=== PATIENT | female | born 1970 | race African-American/Black ===

== ENCOUNTER 2019-06-23 17:03 | Observation (INO) ==
[2019-06-23 18:05] LABS: Basophils # 0.1 10*3/uL (0.0-0.2); Basophils % 0.4 % (0.0-0.8); Eosinophils # 0.2 10*3/uL (0.0-0.87); Eosinophils % 1.8 % (0.00-10.9); Hematocrit 37.9 VOL% (35.7-47.0); Hemoglobin 12.1 GM/DL (12.0-16.0); Immature Granulocytes % 0.4 %; Immature Granulocytes Absolute 0.05 #; Lymphocytes # 3.5 10*3/uL (1.4-4.0); Lymphocytes % 27.9 % (21.3-54.2); Mean Corpuscular HGB Conc 31.9 GM/DL (32-36); Mean Corpuscular Volume 85.4 FL (87-102); Mean Platelet Volume 9.1 FL (9.6-12.0); Monocytes % 12.6 % (1.7-12.7); Neutrophils % 56.9 % (38.7-73.9); Platelet Count 432 T/CUMM (130-400); Red Blood Count 4.44 MC/CUMM (3.8-5.5); Red Cell Distribution Width 13.9 % (9.3-17.3); White Blood Count 12.6 T/CUMM (4-12)
[2019-06-23 18:24] LABS: Albumin 3.5 G/DL (3.4-5.0); Bilirubin,Total 0.4 MG/DL (0.2-1.0); Calcium 9.1 MG/DL (8.5-10.1); Osmolality,Calculated 279.4 MOS/KG (273-304)
[2019-06-23] MEDS ORDERED: VANCOMYCIN INJ 1,250 MG in SODIUM CHLORIDE 0.9% 250 ML IV STA (18:27)
[2019-06-23] MEDS ORDERED: VANCOMYCIN 1,000 MG VIAL ONE (18:31)
[2019-06-23] MEDS ORDERED: VANCOMYCIN INJ 1,000 MG in SODIUM CHLORIDE 0.9% 250 ML IV STA (18:33)
[2019-06-23] MEDS ORDERED: ACETAMINOPHEN 325 MG TABLET PO PRN (19:13)
[2019-06-23] MEDS: DEXTROSE 5% NACL 0.45% 1,000 ML IV SCH (20:25)
[2019-06-23] MEDS ORDERED: ALBUTEROL/IPRATROPIUM 3 ML NEB RESP TX SCH (21:00)
[2019-06-23] MEDS ORDERED: INFLUENZA VIRUS VACCINE 0.5 ML SYRINGE IM ONE (22:15)
[2019-06-23] MEDS: VANCOMYCIN INJ 2,000 MG in SODIUM CHLORIDE 0.9% 500 ML IV SCH (22:49)
[2019-06-24] MEDS: ONDANSETRON 4 MG/2 ML VIAL IV PRN ×2 (00:10→19:39)
[2019-06-24 05:03] LABS: Basophils # 0.1 10*3/uL (0.0-0.2); Basophils % 0.5 % (0.0-0.8); Eosinophils # 0.3 10*3/uL (0.0-0.87); Hematocrit 35.5 VOL% (35.7-47.0); Hemoglobin 11.2 GM/DL (12.0-16.0); Immature Granulocytes % 0.2 %; Immature Granulocytes Absolute 0.02 #; Lymphocytes # 3.5 10*3/uL (1.4-4.0); Lymphocytes % 33.7 % (21.3-54.2); Mean Corpuscular HGB Conc 31.5 GM/DL (32-36); Mean Corpuscular Volume 86.6 FL (87-102); Monocytes % 13.3 % (1.7-12.7); Neutrophils % 49.3 % (38.7-73.9); Platelet Count 386 T/CUMM (130-400); Red Cell Distribution Width 14.1 % (9.3-17.3); White Blood Count 10.3 T/CUMM (4-12)
[2019-06-24] MEDS: DEXTROSE 5% NACL 0.45% 1,000 ML IV SCH ×4 (06:35→21:13)
[2019-06-24] MEDS ORDERED: CLINDAMYCIN INJ 900 MG in PREMIX 1 EACH IV ONE (07:23)
[2019-06-24] MEDS: ALBUTEROL/IPRATROPIUM 3 ML NEB RESP TX SCH ×4 (07:30→21:06)
[2019-06-24] MEDS ORDERED: ALBUTEROL/IPRATROPIUM 3 ML NEB RESP TX ONE (07:38)
[2019-06-24] MEDS: VANCOMYCIN INJ 2,000 MG in SODIUM CHLORIDE 0.9% 500 ML IV SCH (08:55)
[2019-06-24] MEDS ORDERED: PANTOPRAZOLE 40 MG TABLET PO SCH (09:00)
[2019-06-24] MEDS ORDERED: LIDOCAINE 1%/EPI INJ 20 ML VIAL ONE (11:01)
[2019-06-24] MEDS ORDERED: BUPIVACAINE 0.5% 50 ML VIAL ONE (11:01)
[2019-06-24] MEDS ORDERED: HYDROmorphone 2 MG/1 ML VIAL ONE (11:51)
[2019-06-24] MEDS ORDERED: ONDANSETRON 4 MG/2 ML VIAL ONE ×2 (11:51→11:52)
[2019-06-24] MEDS ORDERED: DEXAMETHASONE 4 MG/1 ML VIAL ONE (11:52)
[2019-06-24] MEDS ORDERED: PROPOFOL 200 MG/20 ML VIAL IV ONE (11:52)
[2019-06-24] MEDS ORDERED: MIDAZOLAM 2 MG/2 ML VIAL ONE (11:52)
[2019-06-24] MEDS ORDERED: LIDOCAINE 2% 5 ML VIAL ONE (11:52)
[2019-06-24] MEDS ORDERED: fentaNYL 100 MCG/2 ML VIAL ONE (11:52)
[2019-06-24] MEDS: HYDROmorphone 2 MG/1 ML VIAL IV PRN ×2 (11:53→11:58)
[2019-06-24] MEDS ORDERED: ONDANSETRON 4 MG/2 ML VIAL IV PRN (11:56)
[2019-06-24] MEDS: CLINDAMYCIN 300 MG CAPSULE PO SCH ×2 (14:09→21:05)
[2019-06-24] MEDS: AMITRIPTYLINE 25 MG TABLET PO SCH (21:05)
[2019-06-25] MEDS: LEVOTHYROXINE 150 MCG TABLET PO SCH (05:43)
[2019-06-25] MEDS: CLINDAMYCIN 300 MG CAPSULE PO SCH ×3 (05:43→21:32)
[2019-06-25] MEDS: DEXTROSE 5% NACL 0.45% 1,000 ML IV SCH ×2 (05:43→19:00)
[2019-06-25] MEDS: ALBUTEROL/IPRATROPIUM 3 ML NEB RESP TX SCH ×4 (07:36→20:02)
[2019-06-25] MEDS: LOSARTAN 50 MG TABLET PO SCH (09:34)
[2019-06-25] MEDS: CITALOPRAM 20 MG TABLET PO SCH (09:34)
[2019-06-25] MEDS: hydroCHLOROthiazide 12.5 MG CAPSULE PO SCH (09:34)
[2019-06-25] MEDS: PANTOPRAZOLE 40 MG TABLET PO SCH (09:34)
[2019-06-25] MEDS: POTASSIUM CHLORIDE 10 MEQ TABLET PO SCH (09:35)
[2019-06-25] MEDS: AMITRIPTYLINE 25 MG TABLET PO SCH (21:32)
[2019-06-26] MEDS: DEXTROSE 5% NACL 0.45% 1,000 ML IV SCH ×2 (03:58→07:26)
[2019-06-26] MEDS: CLINDAMYCIN 300 MG CAPSULE PO SCH ×3 (06:40→21:18)
[2019-06-26] MEDS: LEVOTHYROXINE 150 MCG TABLET PO SCH (06:40)
[2019-06-26] MEDS: ALBUTEROL/IPRATROPIUM 3 ML NEB RESP TX SCH ×4 (07:57→19:36)
[2019-06-26] MEDS: PANTOPRAZOLE 40 MG TABLET PO SCH (09:29)
[2019-06-26] MEDS: CITALOPRAM 20 MG TABLET PO SCH (09:29)
[2019-06-26] MEDS: POTASSIUM CHLORIDE 10 MEQ TABLET PO SCH (09:29)
[2019-06-26] MEDS: hydroCHLOROthiazide 12.5 MG CAPSULE PO SCH (09:30)
[2019-06-26] MEDS: MAGNESIUM HYDROXIDE SUSP 30 ML UDCUP PO PRN ×2 (09:30→17:32)
[2019-06-26] MEDS: LOSARTAN 50 MG TABLET PO SCH (09:30)
[2019-06-26] MEDS ORDERED: NICOTINE 21 MG/24 HR PATCH TRANSDERM PRN (18:52)
[2019-06-26] MEDS: AMITRIPTYLINE 25 MG TABLET PO SCH (21:18)
[2019-06-27] MEDS: MAGNESIUM HYDROXIDE SUSP 30 ML UDCUP PO PRN (05:48)
[2019-06-27] MEDS: CLINDAMYCIN 300 MG CAPSULE PO SCH (05:50)
[2019-06-27] MEDS: LEVOTHYROXINE 150 MCG TABLET PO SCH (05:50)
[2019-06-27] MEDS: ALBUTEROL/IPRATROPIUM 3 ML NEB RESP TX SCH ×2 (08:20→11:17)
[2019-06-27] MEDS: POTASSIUM CHLORIDE 10 MEQ TABLET PO SCH (10:54)
[2019-06-27] MEDS: hydroCHLOROthiazide 12.5 MG CAPSULE PO SCH (10:55)
[2019-06-27] MEDS: CITALOPRAM 20 MG TABLET PO SCH (10:55)
[2019-06-27] MEDS: LOSARTAN 50 MG TABLET PO SCH (10:55)
[2019-06-27] MEDS: PANTOPRAZOLE 40 MG TABLET PO SCH (10:55)
[2019-06-27 11:59] VITALS: BP 122/70
== END 2019-06-27 13:28 | disposition home or self-care (01) ==
LOC: N.ED 17:03 → N.EDINP 17:03 → N.3E 19:49
PROVIDERS: ADMIT Surgery; ATTEND Surgery